=== PATIENT | male | born 1940 | race Hispanic/Latino ===

== ENCOUNTER 2019-02-20 01:07 | Inpatient (IN) | payer MEDICARE ==
[2019-02-20] VITALS (7 sets, daily range): BP systolic 99–131; BP diastolic 56–96
[~2019-02-20] VITALS: Ht 170.2 cm; Wt 110.4 kg
[2019-02-20 01:30] LABS: BASOPHILS % (AUTO) 0.5 % (0.0-5.0); EOSINOPHILS % (AUTO) 1.3 % (0.0-8.0); HEMATOCRIT 30.9 % (42-54); LYMPHOCYTES % (AUTO) 8.6 % (21.0-51.0); MEAN CORPUSCULAR HEMOGLOBIN 31.3 pg (27.0-33.0); MEAN CORPUSCULAR HGB CONC 33.6 g/dL (32.0-36.0); MEAN CORPUSCULAR VOLUME 93.4 fL (79-99); NEUTROPHILS % (AUTO) 83.6 % (40.0-77.0); PLATELET COUNT (AUTO) 268 K/uL (130-400); RED BLOOD CELL COUNT(AUTO) 3.31 MIL/uL (4.50-6.20); WHITE BLOOD COUNT (AUTO) 14.3 K/uL (4.8-10.8)
[2019-02-20] MEDS ORDERED: ACETAMINOPHEN EXTRA STRENGTH 500 MG TABLET ONE (01:33)
[2019-02-20 01:47] LABS: INR 1.04 (0.85-1.15); PARTIAL THROMBOPLASTIN TIME 37.8 SEC (26.3-35.5); PROTHROMBIN TIME 10.9 SEC (9.6-11.6)
[2019-02-20 01:48] LABS: ALBUMIN 2.7 g/dL (3.5-5.0); BILIRUBIN,TOTAL 0.3 mg/dL (0.2-1.0); CREATININE 2.5 mg/dL (0.5-1.5); TOTAL PROTEIN, SERUM 7.2 g/dL (6.0-8.3)
[2019-02-20 01:59] LABS: POTASSIUM 7.1 mmol/L (3.5-5.1)
[2019-02-20 02:01] LABS: B-TYPE NATRIURETIC PEPTIDE 75 pg/mL (0-100)
[2019-02-20 02:36] LABS: APPEARANCE,URINE Clear (CLEAR); BILIRUBIN,URINE Negative (NEGATIVE); COLOR,URINE Yellow (YELLOW); GLUCOSE, URINE (UA) 250 mg/dL (NEGATIVE); KETONES,URINE Negative (NEGATIVE); LEUKOCYTE ESTERASE ,URINE Moderate (NEGATIVE); NITRATE,URINE Positive (NEGATIVE); OCCULT BLOOD,URINE Moderate (NEGATIVE); PROTEIN,URINE Trace mg/dL (NEGATIVE)
[2019-02-20 02:43] LABS: CREATININE 2.2 mg/dL (0.5-1.5)
[2019-02-20 02:54] LABS: POTASSIUM 6.8 mmol/L (3.5-5.1)
[2019-02-20 03:10] LABS: BACTERIA,URINE Many /HPF (None Seen); MUCUS,URINE Rare LPF (None Seen); SQUAMOUS EPITHELIAL CELL,UR Few /HPF (0-2)
[2019-02-20] MEDS ORDERED: CALCIUM GLUCONATE 1 GM/10 ML VIAL IV ONE (03:24)
[2019-02-20] MEDS ORDERED: INSULIN HUMULIN R 100 UNIT/ML 3ML ONE (03:24)
[2019-02-20] MEDS ORDERED: AZITHROMYCIN 500MG+NS 250ML 250 ML IV ONE (03:24)
[2019-02-20] MEDS ORDERED: LEVOFLOXACIN 500 MG/D5W 100 ML 100 ML IV SCH (03:45)
[2019-02-20] MEDS ORDERED: ACETAMINOPHEN 325 MG TAB PO PRN ×2 (03:45)
[2019-02-20] MEDS ORDERED: DEXTROSE 50%-WATER 50 ML DISP.SYRIN IV PRN (03:45)
[2019-02-20] MEDS ORDERED: ONDANSETRON HCL 4 MG/2 ML VIAL IV PRN (03:45)
[2019-02-20] MEDS ORDERED: GUAIFENESIN-DM 200/20 MG 10 ML PO PRN (03:45)
[2019-02-20] MEDS ORDERED: GLUCAGON 1MG KIT 1 MG ML IM PRN (03:45)
[2019-02-20 04:21] LABS: HEMOGLOBIN A1C 9.3 % (4.0-6.0)
[2019-02-20 04:34] LABS: % IRON SATURATION 10.5 % (30-44)
[2019-02-20] MEDS ORDERED: LEVOFLOXACIN 500 MG/D5W 100 ML 100 ML ONE (04:45)
[2019-02-20] MEDS ORDERED: ZOSYN 3.375GM+NS 50ML 50 ML IV ONE (05:14)
[2019-02-20] MEDS ORDERED: PHARMACY COMMUNICATION MISC SCH (05:30)
[2019-02-20] MEDS: SODIUM CHLORIDE 0.9% 1000ML 1,000 ML IV SCH ×2 (05:41→16:50)
[2019-02-20] MEDS: ZOSYN 3.375GM+NS 50ML 50 ML IV SCH ×3 (05:42→22:16)
[2019-02-20] MEDS ORDERED: LEVO50TA11 PO (05:47)
[2019-02-20] MEDS ORDERED: INSU100I26 SQ (05:47)
[2019-02-20] MEDS ORDERED: TAMS-1 PO (05:47)
[2019-02-20] MEDS ORDERED: LISI40TA4 PO (05:47)
[2019-02-20] MEDS ORDERED: SIMV40TA5 PO (05:47)
[2019-02-20] MEDS ORDERED: PRAS10TA9 PO (05:47)
[2019-02-20] MEDS ORDERED: MELO-106 PO (05:47)
[2019-02-20] MEDS ORDERED: AEC81 PO (05:47)
--- NOTE | 2019-02-20 06:00 | NUR ---
NEW ADMIT ADMITTED POST 2 FALLS IN 24 HRS FROM HOME, SEPTICEMIA, UTI AND DEHYDRATION. ALERT AND ORIENTED X 3, NO COMPLAINTS OF PAIN, REINFORCED SAFETY INSTRUCTIONS, AT THE BEDSIDE. NS AT 100 C/HR, DUE ANTIBIOTICS STARTED, PLACED ON TELEMETRY MONITORING, RUNNING NSR IN THE 70'S. HOME MEDS ENTERED, PENDING RECONCILIATION.
[2019-02-20] MEDS: IPRATROPIUM/ALBUTEROL SULFATE 3 ML SOLUTION IH SCH ×5 (07:02→21:15)
[2019-02-20] MEDS: INSULIN HUMULIN R 100 UNIT/ML 3ML SQ SCH ×4 (07:30→21:00)
[2019-02-20] MEDS ORDERED: INSULIN GLARGINE 100 UNITS/ML 10 ML VIAL SQ SCH (09:00)
[2019-02-20 09:55] LABS: POTASSIUM 6.2 mmol/L (3.5-5.1); TROPONIN I 0.67 ng/mL (0.00-0.06)
[2019-02-20] MEDS ORDERED: SODIUM POLYSTYRENE SULFONATE 15 GM/60 ML ML ONE (10:07)
[2019-02-20] MEDS: FAMOTIDINE 20MG TAB 20 MG TAB PO SCH (10:11)
[2019-02-20] MEDS: LEVOTHYROXINE 50 MCG TABLET PO SCH (10:11)
[2019-02-20] MEDS: ASPIRIN 81 MG EC TAB PO SCH (10:12)
[2019-02-20] MEDS: SODIUM POLYSTYRENE SULFONATE 15 GM/60 ML ML PO SCH (10:15)
[2019-02-20] MEDS: ENOXAPARIN SODIUM 30 MG/0.3 ML SQ SCH (10:16)
[2019-02-20] MEDS ORDERED: COMPOUND IV MISC 1 EACH IVSOLN MISC PRN (11:30)
[2019-02-20] MEDS ORDERED: SODIUM BICARBONATE 650 MG TAB PO SCH (11:30)
[2019-02-20] MEDS: PRASUGREL HCL 10 MG TABLET PO SCH (12:01)
[2019-02-20 13:43] LABS: TROPONIN I 1.12 ng/mL (0.00-0.06)
[2019-02-20 15:12] LABS: CREATININE 1.9 mg/dL (0.5-1.5); MAGNESIUM 1.5 mg/dL (1.80-2.40)
--- NOTE | 2019-02-20 15:23 | NUR ---
D/C PLAN cm spoke to pt and daughter named Mitul Kim regarding d/c planning. pt lives with spouse. Pt has a provider to assist with ADL's. Pt has a rollator walker. Plan to home. CM to f/u. Addendum: 02/20/19 at 1526 by BEN COLE CM Amended: Links added. Addendum: 02/20/19 at 1530 by BEN COLE CM Daughter asked CM about home physical therapy. CM explained that pt can obtain services by current home health agency. Explained to ask home health nurse to f/u with PCP in regards to orders. Verbalized understanding. No other questions or concerns verbalized.
[2019-02-20 15:26] LABS: POTASSIUM 6.2 mmol/L (3.5-5.1)
[2019-02-20] MEDS ORDERED: DEXTROSE 50%-WATER 50 ML DISP.SYRIN IV SCH (15:45)
[2019-02-20] MEDS ORDERED: INSULIN HUMULIN R 100 UNIT/ML 3ML IV SCH (15:45)
[2019-02-20] MEDS ORDERED: CALCIUM GLUCONATE 1 GM/10 ML VIAL IV SCH (15:45)
[2019-02-20] MEDS ORDERED: ALBUTEROL SULFATE 0.083% 2.5 MG/3 ML INH IH ONE (15:45)
[2019-02-20] MEDS ORDERED: CALCIUM GLUCONATE 1 GM in SODIUM CHLORIDE 0.9% 50 ML IV SCH (16:00)
[2019-02-20 20:48] LABS: TROPONIN I 1.12 ng/mL (0.00-0.06)
[2019-02-20] MEDS: TAMSULOSIN HCL 0.4 MG CAP.ER.24H PO SCH (22:15)
[2019-02-20] MEDS: SODIUM BICARBONATE 650 MG TAB PO SCH (22:15)
[2019-02-20] MEDS: SIMVASTATIN 20 MG TABLET PO SCH (22:15)
[2019-02-21 01:40] LABS: TROPONIN I 0.89 ng/mL (0.00-0.06)
[2019-02-21] MEDS: IPRATROPIUM/ALBUTEROL SULFATE 3 ML SOLUTION IH SCH ×6 (02:33→21:16)
[2019-02-21 03:48] VITALS: BP 110/42
[2019-02-21] MEDS: ZOSYN 3.375GM+NS 50ML 50 ML IV SCH ×3 (04:48→21:30)
[2019-02-21] MEDS: SODIUM CHLORIDE 0.9% 1000ML 1,000 ML IV SCH ×2 (04:48→12:48)
[2019-02-21] MEDS: INSULIN HUMULIN R 100 UNIT/ML 3ML SQ SCH ×4 (05:12→21:00)
[2019-02-21 06:40] LABS: BASOPHILS % (AUTO) 0.5 % (0.0-5.0); EOSINOPHILS % (AUTO) 2.1 % (0.0-8.0); LYMPHOCYTES % (AUTO) 8.6 % (21.0-51.0); MEAN CORPUSCULAR HEMOGLOBIN 31.3 pg (27.0-33.0); MEAN CORPUSCULAR HGB CONC 33.3 g/dL (32.0-36.0); MONOCYTES % (AUTO) 7.6 % (3.0-13.0); NEUTROPHILS % (AUTO) 81.2 % (40.0-77.0); PLATELET COUNT (AUTO) 228 K/uL (130-400); RED BLOOD CELL COUNT(AUTO) 2.98 MIL/uL (4.50-6.20); RED CELL DISTRIBUTION WIDTH 13.2 % (11.0-15.5)
[2019-02-21 06:56] LABS: ALBUMIN 2.3 g/dL (3.5-5.0); BILIRUBIN,TOTAL 0.4 mg/dL (0.2-1.0); CREATININE 1.7 mg/dL (0.5-1.5); MAGNESIUM 1.6 mg/dL (1.80-2.40); POTASSIUM 5.6 mmol/L (3.5-5.1); TOTAL PROTEIN, SERUM 6.4 g/dL (6.0-8.3)
[2019-02-21 07:00] VITALS: BP 133/75
[2019-02-21 08:00] LABS: TROPONIN I 1.11 ng/mL (0.00-0.06)
[2019-02-21] MEDS ORDERED: LEVOFLOXACIN 250 MG/D5W 50ML 50 ML IVPB SCH (09:00)
[2019-02-21] MEDS: SODIUM POLYSTYRENE SULFONATE 15 GM/60 ML ML RC SCH (09:00)
[2019-02-21] MEDS: ASPIRIN 81 MG EC TAB PO SCH (09:02)
[2019-02-21] MEDS: SODIUM BICARBONATE 650 MG TAB PO SCH ×2 (09:02→21:30)
[2019-02-21] MEDS: LEVOTHYROXINE 50 MCG TABLET PO SCH (09:02)
[2019-02-21] MEDS: FAMOTIDINE 20MG TAB 20 MG TAB PO SCH (09:02)
[2019-02-21] MEDS: ENOXAPARIN SODIUM 30 MG/0.3 ML SQ SCH (09:05)
[2019-02-21 11:00] VITALS: BP 152/92
[2019-02-21] MEDS: SODIUM POLYSTYRENE SULFONATE 15 GM/60 ML ML PO SCH (12:47)
[2019-02-21] MEDS: PRASUGREL HCL 10 MG TABLET PO SCH (12:48)
[2019-02-21] MEDS: IRON SUCROSE COMPLEX 100 MG in SODIUM CHLORIDE 0.9% 50 ML IV SCH (13:00)
[2019-02-21 16:00] VITALS: BP 137/72
[2019-02-21 20:00] VITALS: BP 151/74
[2019-02-21] MEDS: TAMSULOSIN HCL 0.4 MG CAP.ER.24H PO SCH (21:30)
[2019-02-21] MEDS: SIMVASTATIN 20 MG TABLET PO SCH (21:30)
[2019-02-22] VITALS: BP 136/76
[2019-02-22] MEDS: IPRATROPIUM/ALBUTEROL SULFATE 3 ML SOLUTION IH SCH ×6 (01:07→21:58)
[2019-02-22 04:00] VITALS: BP 138/81
[2019-02-22] MEDS: SODIUM CHLORIDE 0.9% 1000ML 1,000 ML IV SCH ×2 (04:08→05:43)
[2019-02-22] MEDS: ZOSYN 3.375GM+NS 50ML 50 ML IV SCH ×3 (04:45→21:25)
[2019-02-22 05:16] LABS: HEMATOCRIT 26.1 % (42-54); MEAN CORPUSCULAR HEMOGLOBIN 31.7 pg (27.0-33.0); MEAN CORPUSCULAR HGB CONC 33.4 g/dL (32.0-36.0); MEAN CORPUSCULAR VOLUME 94.8 fL (79-99); PLATELET COUNT (AUTO) 232 K/uL (130-400); RED BLOOD CELL COUNT(AUTO) 2.75 MIL/uL (4.50-6.20)
[2019-02-22 05:30] LABS: CREATININE 1.4 mg/dL (0.5-1.5); POTASSIUM 4.8 mmol/L (3.5-5.1)
[2019-02-22] MEDS: INSULIN HUMULIN R 100 UNIT/ML 3ML SQ SCH ×4 (06:19→21:00)
[2019-02-22 07:00] VITALS: BP 145/75
[2019-02-22] MEDS: SODIUM POLYSTYRENE SULFONATE 15 GM/60 ML ML PO SCH (08:20)
[2019-02-22] MEDS: SODIUM POLYSTYRENE SULFONATE 15 GM/60 ML ML RC SCH (08:58)
[2019-02-22] MEDS: SODIUM BICARBONATE 650 MG TAB PO SCH ×2 (10:52→21:25)
[2019-02-22] MEDS: PRASUGREL HCL 10 MG TABLET PO SCH (10:52)
[2019-02-22] MEDS: ASPIRIN 81 MG EC TAB PO SCH (10:52)
[2019-02-22] MEDS: LEVOTHYROXINE 50 MCG TABLET PO SCH (10:52)
[2019-02-22] MEDS: FAMOTIDINE 20MG TAB 20 MG TAB PO SCH (10:52)
[2019-02-22] MEDS: ENOXAPARIN SODIUM 30 MG/0.3 ML SQ SCH (10:53)
[2019-02-22 11:00] VITALS: BP 140/65
[2019-02-22] MEDS: INSULIN GLARGINE 100 UNITS/ML 10 ML VIAL SQ SCH (11:20)
[2019-02-22] MEDS: IRON SUCROSE COMPLEX 100 MG in SODIUM CHLORIDE 0.9% 50 ML IV SCH (11:20)
--- NOTE | 2019-02-22 12:49 | NUR ---
CM Note: [facility] pending acceptance CM met with pt and fam, discussed MD recs for SNF, pt and fam agreeable, spouse signed SIMON for [facility]. Faxed order, clinicals, and pasrr. Spoke to Osvaldo, will come [place]ala pt. Pt pending acceptance. Primary nurse aware. CM to cont to follow up.
[2019-02-22] MEDS: MAGNESIUM 2GM PREMIX 50ML 50 ML IV PRN (14:11)
[2019-02-22 19:00] VITALS: BP 154/73
[2019-02-22] MEDS: TAMSULOSIN HCL 0.4 MG CAP.ER.24H PO SCH (21:25)
[2019-02-22] MEDS: SIMVASTATIN 20 MG TABLET PO SCH (21:25)
[2019-02-23] VITALS: BP 144/67
[2019-02-23] MEDS: IPRATROPIUM/ALBUTEROL SULFATE 3 ML SOLUTION IH SCH ×5 (01:23→18:20)
--- NOTE | 2019-02-23 03:50 | NUR ---
SLEEP Pt slept fairly,voiced no complaints of pain or discomfort.
[2019-02-23 04:00] VITALS: BP 134/71
[2019-02-23 05:08] LABS: HEMATOCRIT 26.5 % (42-54); MEAN CORPUSCULAR HEMOGLOBIN 30.8 pg (27.0-33.0); MEAN CORPUSCULAR HGB CONC 32.7 g/dL (32.0-36.0); MEAN CORPUSCULAR VOLUME 94.2 fL (79-99); PLATELET COUNT (AUTO) 249 K/uL (130-400); RED BLOOD CELL COUNT(AUTO) 2.81 MIL/uL (4.50-6.20); RED CELL DISTRIBUTION WIDTH 13.1 % (11.0-15.5)
[2019-02-23] MEDS: ZOSYN 3.375GM+NS 50ML 50 ML IV SCH ×2 (05:09→12:04)
[2019-02-23 05:22] LABS: CREATININE 1.3 mg/dL (0.5-1.5); MAGNESIUM 1.6 mg/dL (1.80-2.40); POTASSIUM 4.4 mmol/L (3.5-5.1)
[2019-02-23] MEDS: MAGNESIUM 2GM PREMIX 50ML 50 ML IV PRN (06:22)
[2019-02-23] MEDS: INSULIN HUMULIN R 100 UNIT/ML 3ML SQ SCH ×3 (06:23→16:30)
[2019-02-23 07:30] VITALS: BP 121/60
[2019-02-23] MEDS: SODIUM POLYSTYRENE SULFONATE 15 GM/60 ML ML PO SCH (08:35)
[2019-02-23] MEDS: SODIUM POLYSTYRENE SULFONATE 15 GM/60 ML ML RC SCH (08:35)
--- NOTE | 2019-02-23 09:22 | NUR ---
CM Note: [facility] acceptance Spoke to Osvaldo crisostomo/Natalie Knight, pt has acceptance. Pt may transfer via [facility] transport van once ready to dc. Primary nurse aware. CM to cont to follow up.
[2019-02-23] MEDS: IRON SUCROSE COMPLEX 100 MG in SODIUM CHLORIDE 0.9% 50 ML IV SCH (09:44)
[2019-02-23] MEDS: PRASUGREL HCL 10 MG TABLET PO SCH (09:45)
[2019-02-23] MEDS: LEVOTHYROXINE 50 MCG TABLET PO SCH (09:45)
[2019-02-23] MEDS: FAMOTIDINE 20MG TAB 20 MG TAB PO SCH (09:45)
[2019-02-23] MEDS: SODIUM BICARBONATE 650 MG TAB PO SCH (09:45)
[2019-02-23] MEDS: ASPIRIN 81 MG EC TAB PO SCH (09:45)
[2019-02-23] MEDS: ENOXAPARIN SODIUM 30 MG/0.3 ML SQ SCH (09:46)
[2019-02-23] MEDS: INSULIN GLARGINE 100 UNITS/ML 10 ML VIAL SQ SCH (09:55)
[2019-02-23 11:00] VITALS: BP 126/66
[2019-02-23 16:00] VITALS: BP 129/69
== END 2019-02-23 18:50 | DRG 871 ==
LOC: EDH 01:07 → EDHIP 03:49 → 3AH 04:48
PROVIDERS: ADMIT Internal Medicine; ATTEND Internal Medicine
DX: A41.50 Gram-negative sepsis, unspecified (principal); J18.9 Pneumonia, unspecified organism; G93.41 Metabolic encephalopathy; N39.0 Urinary tract infection, site not specified; N17.9 Acute kidney failure, unspecified; E87.1 Hypo-osmolality and hyponatremia; N18.3 Chronic kidney disease, stage 3 (moderate); E87.5 Hyperkalemia; D64.9 Anemia, unspecified; E03.9 Hypothyroidism, unspecified; E11.22 Type 2 diabetes mellitus with diabetic chronic kidney disease; E11.65 Type 2 diabetes mellitus with hyperglycemia; E66.01 Morbid (severe) obesity due to excess calories; E78.00 Pure hypercholesterolemia, unspecified; E78.5 Hyperlipidemia, unspecified; E83.42 Hypomagnesemia; E86.0 Dehydration; E87.6 Hypokalemia; I12.9 Hypertensive chronic kidney disease with stage 1 through stage 4 chronic kidney disease, or unspecified chronic kidney disease; I25.10 Atherosclerotic heart disease of native coronary artery without angina pectoris; N40.0 Benign prostatic hyperplasia without lower urinary tract symptoms; M19.90 Unspecified osteoarthritis, unspecified site; W01.0XXA Fall on same level from slipping, tripping and stumbling without subsequent striking against object, initial encounter; Y93.01 Activity, walking, marching and hiking; I25.5 Ischemic cardiomyopathy; B96.20 Unspecified Escherichia coli [E. coli] as the cause of diseases classified elsewhere; N41.9 Inflammatory disease of prostate, unspecified; Z74.01 Bed confinement status; Z79.4 Long term (current) use of insulin; Z83.3 Family history of diabetes mellitus; Y92.009 Unspecified place in unspecified non-institutional (private) residence as the place of occurrence of the external cause; Y99.8 Other external cause status; Z82.49 Family history of ischemic heart disease and other diseases of the circulatory system; Z68.38 Body mass index [BMI] 38.0-38.9, adult
CPT/HCPCS: 36415; 70450; 71045; 73562; 76770; 80048; 80053; 80061; 81001; 82009; 82550; 82728; 82948; 83036; 83540; 83550; 83605; 83690; 83735; 83874; 83880; 84132; 84145; 84484; 85025; 85027; 85610; 85730; 86140; 87040; 87077; 87088; 87186; 87486; 87581; 87633; 87798; 87804; 93005; 94640; 94664; 94760; 97039; A4606; G0378; J0456; J0610; J1650; J1756; J1815; J1956; J2543; J3475; J7030; J7070

== ENCOUNTER 2019-05-11 21:57 | Inpatient (IN) | payer MEDICARE | END 2019-05-14 17:47 | disposition home or self-care (01) | LOC: EDH 21:57 → EDHIP 05-12 00:10 → 2DH 05-12 04:26 | DX: N39.0 Urinary tract infection, site not specified (principal); I50.31 Acute diastolic (congestive) heart failure; N17.9 Acute kidney failure, unspecified; E87.5 Hyperkalemia; N28.9 Disorder of kidney and ureter, unspecified; Z79.4 Long term (current) use of insulin; E11.65 Type 2 diabetes mellitus with hyperglycemia; I11.0 Hypertensive heart disease with heart failure; R09.89 Other specified symptoms and signs involving the circulatory and respiratory systems ==

== ENCOUNTER 2020-06-22 20:18 | Inpatient (IN) | payer MEDICARE ==
[~2020-06-22] VITALS: Ht 167.6 cm; Wt 111.6 kg
[~2020-06-22 20:18] MED LIST: AEC81 PO; CHOL500051 PO; DOCU-282 PO; FAMO20TA8 PO; INSU100I26 SQ; LEVO500T2 PO; LEVO50TA11 PO; LISI40TA4 PO; MELO-106 PO; PRAS10TA9 PO; SIMV-46 PO; TAMS-1 PO
[2020-06-22] MEDS ORDERED: PROPOFOL 1000 MG/100 ML 100 ML IV ONE (20:25)
[2020-06-22 20:38] LABS: BASOPHILS % (AUTO) 0.3 % (0.0-5.0); HEMATOCRIT 24.1 % (42-54); MEAN CORPUSCULAR HEMOGLOBIN 28.7 pg (27.0-33.0); MEAN CORPUSCULAR HGB CONC 29.9 g/dL (32.0-36.0); MONOCYTES % (AUTO) 3.4 % (3.0-13.0); NEUTROPHILS % (AUTO) 74.5 % (40.0-77.0); NUCLEATED RED BLOOD CELLS 0.1 % (0.0-0.19); PLATELET COUNT (AUTO) 334 K/uL (130-400); RED BLOOD CELL COUNT(AUTO) 2.51 MIL/uL (4.50-6.20); RED CELL DISTRIBUTION WIDTH 14.7 % (11.0-15.5); WHITE BLOOD COUNT (AUTO) 22.2 K/uL (4.8-10.8)
[2020-06-22 20:40] LABS: APPEARANCE,URINE CLOUDY (CLEAR); BILIRUBIN,URINE NEGATIVE (NEGATIVE); COLOR,URINE YELLOW (YELLOW); GLUCOSE, URINE (UA) NEGATIVE (NEGATIVE); KETONES,URINE NEGATIVE (NEGATIVE); LEUKOCYTE ESTERASE ,URINE LARGE (NEGATIVE); NITRATE,URINE NEGATIVE (NEGATIVE); OCCULT BLOOD,URINE LARGE (NEGATIVE); PH,URINE 5.5 (5.0-8.0); PROTEIN,URINE TRACE mg/dL (NEGATIVE); UROBILINOGEN,URINE 0.2 mg/dL (0.2-1.0)
[2020-06-22] MEDS ORDERED: VANCOMYCIN 1GM+NS 250ML 250 ML IV ONE (20:44)
[2020-06-22] MEDS ORDERED: ASPIRIN 300 MG SUPPOSITORY PR ONE (20:44)
[2020-06-22] MEDS ORDERED: SODIUM CHLORIDE 0.9% 100 ML IV ONE (20:45)
[2020-06-22] MEDS ORDERED: OCTREOTIDE ACETATE 100 MCG/ML AMP IVP SCH (20:45)
[2020-06-22 20:48] LABS: WBC,URINE >100 /HPF (0-1)
[2020-06-22 20:48] LABS: ABG BASE EXCESS -13.2 mmol/L (-2.0-3.0); ABG HCO3 13.9 mmol/L (21.0-28.0); ABG OXYGEN SATURATION 99.6 % (95.0-99.0); ABG PCO2 37 mmHg (35-48)
[2020-06-22] MEDS ORDERED: NITROGLYCERIN 2 MG/VIAL VIAL IV ONE (20:48)
[2020-06-22] MEDS ORDERED: LIDOCAINE HCL 2% 20ML ONE (20:48)
[2020-06-22] MEDS ORDERED: FENTANYL 2500MCG+NS 250ML 0 ML IV ONE (20:48)
[2020-06-22] MEDS ORDERED: NOREPINEPHRINE 4MG/NS 250ML 250 ML IV ONE (20:48)
[2020-06-22] MEDS ORDERED: IOHEXOL 350 MG/ML 100ML INFUS..BTL IV ONE (20:48)
[2020-06-22] MEDS ORDERED: HEPARIN SODIUM 1000UNIT/ML 10ML VIAL ONE (20:48)
[2020-06-22] MEDS ORDERED: BIVALIRUDIN 250 MG/VIAL IV ONE (20:48)
[2020-06-22 20:49] LABS: BACTERIA,URINE Few /HPF (None Seen)
[2020-06-22 20:50] LABS: SQUAMOUS EPITHELIAL CELL,UR None Seen /HPF (0-2)
[2020-06-22 20:51] LABS: INR 1.25 (0.85-1.15); PARTIAL THROMBOPLASTIN TIME 53.2 SEC (26.3-35.5); PROTHROMBIN TIME 13.4 SEC (9.6-11.6)
[2020-06-22 20:59] LABS: ALBUMIN 1.9 g/dL (3.5-5.0); BILIRUBIN,TOTAL 0.1 mg/dL (0.2-1.0); CREATININE 3.5 mg/dL (0.5-1.5); TOTAL PROTEIN, SERUM 6.4 g/dL (6.0-8.3); TROPONIN I 0.06 ng/mL (0.00-0.06)
[2020-06-22] MEDS ORDERED: OCTREOTIDE 1,250 MCG /NS 250ML (DRIP) IV SCH ×2 (21:00)
[2020-06-22] MEDS ORDERED: PANTOPRAZOLE SODIUM 80 MG in NS 100ML IVP SCH (21:00)
[2020-06-22] MEDS ORDERED: CALCIUM GLUCONATE 1 GM/10 ML VIAL IV ONE (21:03)
--- NOTE | 2020-06-22 21:03 | NUR ---
patient on LTV vent last four numbers [phone]
[2020-06-22 21:04] LABS: PLATELET MORPHOLOGY PLT CLUMPS PRESENT
[2020-06-22] MEDS ORDERED: INSULIN HUMULIN R 100 UNIT/ML 3ML ONE (21:04)
[2020-06-22] MEDS ORDERED: DEXTROSE 50%-WATER 50 ML DISP.SYRIN IV ONE (21:04)
[2020-06-22] MEDS ORDERED: SODIUM CHLORIDE 0.9% 500ML 500 ML IV ONE (21:14)
[2020-06-22] MEDS ORDERED: ZOSYN 3.375GM+NS 50ML 50 ML IV ONE (21:27)
[2020-06-22] MEDS ORDERED: ACETAMINOPHEN 325 MG TAB PO PRN (21:45)
[2020-06-22] MEDS ORDERED: SODIUM CHLORIDE 0.9% 1000ML 1,000 ML IV SCH (21:45)
[2020-06-22] MEDS ORDERED: NOREPINEPHRINE 4MG/NS 250ML 250 ML IV PRN (21:45)
[2020-06-23 00:33] LABS: OCCULT BLOOD,GASTRIC FLUID POSITIVE (NEGATIVE)
[2020-06-23] MEDS ORDERED: PROPOFOL 1000 MG/100 ML 100 ML IV ONE ×3 (01:19→12:29)
[2020-06-23 04:29] LABS: BASOPHILS % (AUTO) 0.3 % (0.0-5.0); HEMATOCRIT 32.3 % (42-54); LYMPHOCYTES % (AUTO) 3.1 % (21.0-51.0); MEAN CORPUSCULAR HEMOGLOBIN 29.5 pg (27.0-33.0); MEAN CORPUSCULAR HGB CONC 31.9 g/dL (32.0-36.0); MEAN CORPUSCULAR VOLUME 92.6 fL (79-99); MONOCYTES % (AUTO) 3.8 % (3.0-13.0); NEUTROPHILS % (AUTO) 90.1 % (40.0-77.0); PLATELET COUNT (AUTO) 355 K/uL (130-400); RED BLOOD CELL COUNT(AUTO) 3.49 MIL/uL (4.50-6.20); RED CELL DISTRIBUTION WIDTH 14.7 % (11.0-15.5); WHITE BLOOD COUNT (AUTO) 29.8 K/uL (4.8-10.8)
[2020-06-23 05:01] LABS: ABG BASE EXCESS -10.7 mmol/L (-2.0-3.0); ABG HCO3 14.8 mmol/L (21.0-28.0); ABG OXYGEN SATURATION 97.8 % (95.0-99.0); ABG PCO2 32 mmHg (35-48)
[2020-06-23 05:18] LABS: BILIRUBIN,TOTAL 0.8 mg/dL (0.2-1.0); CREATININE 2.9 mg/dL (0.5-1.5); CRP QUANTITATIVE 68.1 mg/L (0.00-9.0); MAGNESIUM 2.1 mg/dL (1.80-2.40); TOTAL PROTEIN, SERUM 6.7 g/dL (6.0-8.3)
[2020-06-23] MEDS ORDERED: ZOSYN 3.375GM+NS 50ML 50 ML IV ONE (05:23)
[2020-06-23 05:26] LABS: POTASSIUM 6.5 mmol/L (3.5-5.1)
[2020-06-23 05:38] LABS: ERYTHROCYTE SEDIMENTATION RATE 48 MM/HR (0-20)
[2020-06-23] MEDS ORDERED: SODIUM CHLORIDE 0.9% 100 ML IV ONE (05:48)
[2020-06-23] MEDS ORDERED: AMIODARONE HCL 150 MG in DEXTROSE 5%-WATER 100 ML IV SCH (07:30)
[2020-06-23] MEDS ORDERED: AMIODARONE HCL 360 MG in DEXTROSE 5%-WATER 200 ML IV SCH (07:30)
[2020-06-23] MEDS ORDERED: VANCOMYCIN PROTOCOL PER PHARMACY IV SCH (07:30)
[2020-06-23] MEDS ORDERED: SODIUM POLYSTYRENE SULFONATE 15 GM/60 ML ML PO SCH (07:30)
[2020-06-23] MEDS ORDERED: AMIODARONE HCL 450 MG in DEXTROSE 5%-WATER 250 ML IV SCH (07:30)
[2020-06-23] MEDS ORDERED: RENAL DOSE IV SCH (07:30)
[2020-06-23] MEDS ORDERED: SODIUM POLYSTYRENE SULFONATE 15 GM/60 ML ML RC SCH (07:45)
[2020-06-23] MEDS ORDERED: COMPOUND IV REFRIGERATED 1 EACH IVSOLN MISC PRN (07:45)
[2020-06-23] MEDS ORDERED: DEXTROSE 50%-WATER 25 GM/50 ML VIAL IV SCH (07:45)
[2020-06-23] MEDS ORDERED: DEXTROSE 50%-WATER 50 ML DISP.SYRIN IV SCH (07:45)
[2020-06-23] MEDS ORDERED: CALCIUM GLUCONATE 1 GM in SODIUM CHLORIDE 0.9% 100 ML IV SCH (07:45)
[2020-06-23] MEDS ORDERED: CALCIUM GLUCONATE 1 GM/10 ML VIAL IV SCH (07:45)
[2020-06-23] MEDS ORDERED: SODIUM POLYSTYRENE SULFONATE 15 GM/60 ML ML ONE ×2 (07:54→14:04)
[2020-06-23] MEDS ORDERED: CALCIUM GLUCONATE 1 GM/10 ML VIAL IV ONE ×2 (08:24→14:04)
[2020-06-23] MEDS ORDERED: DEXTROSE 50%-WATER 50 ML DISP.SYRIN IV ONE ×2 (08:25→14:04)
[2020-06-23] MEDS: VANCOMYCIN 1.25 GM in SODIUM CHLORIDE 0.9% 250 ML IV SCH (09:00)
[2020-06-23] MEDS: FAMOTIDINE/PF 20 MG/2 ML VIAL IV SCH (09:00)
[2020-06-23] MEDS ORDERED: LORAZEPAM 2 MG/ML 1 ML VIAL ONE ×2 (09:06→12:24)
[2020-06-23] MEDS ORDERED: NOREPINEPHRINE 4MG/NS 250ML 250 ML IV ONE (09:25)
[2020-06-23 10:53] LABS: ABG BASE EXCESS -8.1 mmol/L (-2.0-3.0); ABG HCO3 17.7 mmol/L (21.0-28.0); ABG PCO2 37 mmHg (35-48)
[2020-06-23] MEDS: INSULIN HUMULIN R 100 UNIT/ML 3ML SQ SCH ×2 (11:30→17:00)
[2020-06-23 13:08] LABS: CREATININE 2.7 mg/dL (0.5-1.5); POTASSIUM 6.3 mmol/L (3.5-5.1)
[2020-06-23] MEDS ORDERED: INSULIN HUMULIN R 100 UNIT/ML 3ML ONE (14:05)
--- NOTE | 2020-06-23 16:03 | NUR ---
cm note pt currently on ventilator, call made to pt's daughter dalia bowie, states pt resides at home with spouse, pt has deteriorated in the last few months since March 2020 after hip surgery, went to [facility], but did poorly, and was at home with spouse prior to admit, has provider 4-5hrs daily. has w/c, sc, bsc, hospital bed. daughter also assists. daughter prefers pt to return back to home setting at time of dc if possible. Addendum: 06/23/20 at 1626 by VINNY BERMAN CM Amended: Links added.
[2020-06-23 18:21] LABS: ABG HCO3 18.9 mmol/L (21.0-28.0); ABG OXYGEN SATURATION 96.6 % (95.0-99.0); ABG PCO2 39 mmHg (35-48)
[2020-06-23 18:25] LABS: MEAN CORPUSCULAR HEMOGLOBIN 29.3 pg (27.0-33.0); MEAN CORPUSCULAR VOLUME 91.5 fL (79-99); PLATELET COUNT (AUTO) 323 K/uL (130-400); RED BLOOD CELL COUNT(AUTO) 3.28 MIL/uL (4.50-6.20); RED CELL DISTRIBUTION WIDTH 15.2 % (11.0-15.5); WHITE BLOOD COUNT (AUTO) 23.7 K/uL (4.8-10.8)
[2020-06-23 18:34] LABS: CREATININE 2.6 mg/dL (0.5-1.5); MAGNESIUM 1.7 mg/dL (1.80-2.40); POTASSIUM 5.9 mmol/L (3.5-5.1)
[2020-06-23 19:34] LABS: LYMPHOCYTES % (MANUAL) 2 % (22-44); MAN.DIFF COMMENT-IMPRESSION MANUAL DIFFERENTIAL; MONOCYTES % (MANUAL) 2 % (2-9); SEGMENTED NEUTROPHILS % 96 % (40-70)
[2020-06-23 19:35] LABS: PLATELET MORPHOLOGY COMMENT ADEQUATE
[2020-06-23] MEDS: PROPOFOL 1000 MG/100 ML 100 ML IV PRN ×2 (20:19→23:15)
[2020-06-23] MEDS: ZOSYN 3.375GM+NS 50ML 50 ML IV SCH (20:57)
[2020-06-23] MEDS: SODIUM BICARB 8.4% 50ML SYRING 150 MEQ in DEXTROSE 5%-WATER 1,000 ML IVP SCH ×2 (20:57→23:08)
[2020-06-23] MEDS: HEPARIN SODIUM 5000UNIT/ML 1ML VIAL SQ SCH (21:00)
[2020-06-24] VITALS (62 sets, daily range): BP systolic 85–257; BP diastolic 34–236
[2020-06-24] MEDS: LORAZEPAM 2 MG/ML 1 ML VIAL IVP PRN ×2 (00:37→01:37)
[2020-06-24 03:57] LABS: ABG BASE EXCESS -4.9 mmol/L (-2.0-3.0); ABG HCO3 20.1 mmol/L (21.0-28.0); ABG OXYGEN SATURATION 96.5 % (95.0-99.0); ABG PCO2 37 mmHg (35-48)
[2020-06-24 06:03] LABS: BASOPHILS % (AUTO) 0.2 % (0.0-5.0); HEMATOCRIT 31.4 % (42-54); LYMPHOCYTES % (AUTO) 2.6 % (21.0-51.0); MEAN CORPUSCULAR HEMOGLOBIN 28.9 pg (27.0-33.0); MEAN CORPUSCULAR HGB CONC 31.5 g/dL (32.0-36.0); MEAN CORPUSCULAR VOLUME 91.8 fL (79-99); MONOCYTES % (AUTO) 0.5 % (3.0-13.0); NEUTROPHILS % (AUTO) 95.1 % (40.0-77.0); PLATELET COUNT (AUTO) 332 K/uL (130-400); RED BLOOD CELL COUNT(AUTO) 3.42 MIL/uL (4.50-6.20); RED CELL DISTRIBUTION WIDTH 15.2 % (11.0-15.5); WHITE BLOOD COUNT (AUTO) 22.6 K/uL (4.8-10.8)
[2020-06-24 06:26] LABS: ALBUMIN 1.7 g/dL (3.5-5.0); BILIRUBIN,TOTAL 0.4 mg/dL (0.2-1.0); CREATININE 2.6 mg/dL (0.5-1.5); MAGNESIUM 1.7 mg/dL (1.80-2.40); TOTAL PROTEIN, SERUM 6.1 g/dL (6.0-8.3)
[2020-06-24 06:39] LABS: POTASSIUM 6.9 mmol/L (3.5-5.1)
[2020-06-24] MEDS: INSULIN HUMULIN R 100 UNIT/ML 3ML SQ SCH ×2 (07:30→11:30)
[2020-06-24] MEDS ORDERED: INSULIN LISPRO 100 UNIT/ML 3ML IVP SCH (07:45)
[2020-06-24] MEDS ORDERED: CALCIUM GLUCONATE 1 GM/10 ML VIAL IV SCH (07:45)
[2020-06-24] MEDS ORDERED: SODIUM POLYSTYRENE SULFONATE 15 GM/60 ML ML PO SCH (07:45)
[2020-06-24] MEDS ORDERED: DEXTROSE 50%-WATER 25 GM/50 ML VIAL IV SCH (07:45)
[2020-06-24] MEDS ORDERED: SODIUM BICARB 8.4% 50ML SYRINGE IVP SCH (07:45)
[2020-06-24] MEDS ORDERED: DEXTROSE 50%-WATER 50 ML DISP.SYRIN IV SCH (08:15)
[2020-06-24] MEDS ORDERED: SODIUM BICARB 50MEQ 50ML VIAL IV SCH (08:15)
[2020-06-24] MEDS: HEPARIN SODIUM 5000UNIT/ML 1ML VIAL SQ SCH ×2 (09:00→14:00)
[2020-06-24] MEDS: CALCIUM GLUCONATE 1 GM in SODIUM CHLORIDE 0.9% 100 ML IV SCH (09:02)
[2020-06-24] MEDS: ZOSYN 3.375GM+NS 50ML 50 ML IV SCH ×2 (09:17→21:36)
[2020-06-24] MEDS: SODIUM BICARB 8.4% 50ML SYRING 150 MEQ in DEXTROSE 5%-WATER 1,000 ML IVP SCH ×2 (10:45→21:37)
[2020-06-24] MEDS ORDERED: NOREPINEPHRINE BITARTRATE 16 MG in SODIUM CHLORIDE 0.9% 250 ML IV SCH (17:45)
[2020-06-25] VITALS (45 sets, daily range): BP systolic 88–172; BP diastolic 34–74
[2020-06-25 03:47] LABS: ABG BASE EXCESS 0.4 mmol/L (-2.0-3.0); ABG HCO3 25.7 mmol/L (21.0-28.0); ABG OXYGEN SATURATION 93.1 % (95.0-99.0); ABG PCO2 44 mmHg (35-48)
[2020-06-25 04:56] LABS: BASOPHILS % (AUTO) 0.2 % (0.0-5.0); HEMATOCRIT 32.2 % (42-54); LYMPHOCYTES % (AUTO) 6.8 % (21.0-51.0); MEAN CORPUSCULAR HEMOGLOBIN 29.4 pg (27.0-33.0); MEAN CORPUSCULAR HGB CONC 31.4 g/dL (32.0-36.0); MEAN CORPUSCULAR VOLUME 93.6 fL (79-99); MONOCYTES % (AUTO) 6.3 % (3.0-13.0); NEUTROPHILS % (AUTO) 85.1 % (40.0-77.0); PLATELET COUNT (AUTO) 385 K/uL (130-400); RED BLOOD CELL COUNT(AUTO) 3.44 MIL/uL (4.50-6.20)
[2020-06-25 05:18] LABS: ALBUMIN 1.7 g/dL (3.5-5.0); BILIRUBIN,TOTAL 0.4 mg/dL (0.2-1.0); CREATININE 2.7 mg/dL (0.5-1.5); PHOSPHORUS 4.4 mg/dL (2.5-4.9); POTASSIUM 5.6 mmol/L (3.5-5.1); TOTAL PROTEIN, SERUM 6.2 g/dL (6.0-8.3)
[2020-06-25] MEDS: HEPARIN SODIUM 5000UNIT/ML 1ML VIAL SQ SCH ×3 (08:16→21:23)
[2020-06-25] MEDS: FAMOTIDINE/PF 20 MG/2 ML VIAL IV SCH (08:18)
[2020-06-25] MEDS ORDERED: SODIUM POLYSTYRENE SULFONATE 15 GM/60 ML ML NG SCH (08:30)
[2020-06-25] MEDS ORDERED: CALCIUM GLUCONATE 1 GM/10 ML VIAL IV SCH (09:00)
[2020-06-25] MEDS: CALCIUM GLUCONATE 1 GM in SODIUM CHLORIDE 0.9% 100 ML IV SCH ×3 (09:00→21:00)
[2020-06-25] MEDS ORDERED: CALCIUM GLUCONATE 1 GM/10 ML VIAL IV ONE (09:08)
[2020-06-25] MEDS ORDERED: DEXTROSE 50%-WATER 50 ML DISP.SYRIN IV ONE (09:10)
[2020-06-25] MEDS: ZOSYN 3.375GM+NS 50ML 50 ML IV SCH ×2 (09:14→21:22)
[2020-06-25] MEDS: SODIUM BICARB 8.4% 50ML SYRING 150 MEQ in DEXTROSE 5%-WATER 1,000 ML IVP SCH ×2 (10:40→21:34)
[2020-06-25] MEDS: VANCOMYCIN 1.25 GM in SODIUM CHLORIDE 0.9% 250 ML IV SCH (10:40)
[2020-06-25] MEDS: INSULIN HUMULIN R 100 UNIT/ML 3ML IV SCH ×2 (11:30→16:55)
--- NOTE | 2020-06-25 16:56 | NUR ---
PT HAS BEEN NPO AND UNABLE TO GIVE INSULIN ORDERED. WILL ADVISE PHYSICIAN FOR POSSIBLE SLIDING SCALE.
--- NOTE | 2020-06-25 19:00 | NUR ---
Received report patient CT head is canceled
--- NOTE | 2020-06-25 22:40 | NUR ---
called and followed up for CT head result and informed that it was canceled,no new order [id number].
[2020-06-26] VITALS (24 sets, daily range): BP systolic 85–196; BP diastolic 45–84
[2020-06-26 03:40] LABS: BASOPHILS % (AUTO) 0.4 % (0.0-5.0); EOSINOPHILS % (AUTO) 0.1 % (0.0-8.0); HEMATOCRIT 29.9 % (42-54); MEAN CORPUSCULAR HEMOGLOBIN 28.8 pg (27.0-33.0); MEAN CORPUSCULAR HGB CONC 30.1 g/dL (32.0-36.0); MEAN CORPUSCULAR VOLUME 95.5 fL (79-99); MONOCYTES % (AUTO) 6.6 % (3.0-13.0); NEUTROPHILS % (AUTO) 75.9 % (40.0-77.0); PLATELET COUNT (AUTO) 292 K/uL (130-400); RED BLOOD CELL COUNT(AUTO) 3.13 MIL/uL (4.50-6.20); WHITE BLOOD COUNT (AUTO) 16.3 K/uL (4.8-10.8)
[2020-06-26 03:55] LABS: ALBUMIN 1.4 g/dL (3.5-5.0); BILIRUBIN,TOTAL 0.3 mg/dL (0.2-1.0); CREATININE 2.4 mg/dL (0.5-1.5); MAGNESIUM 1.5 mg/dL (1.80-2.40); PHOSPHORUS 3.7 mg/dL (2.5-4.9); POTASSIUM 4.3 mmol/L (3.5-5.1); TOTAL PROTEIN, SERUM 5.3 g/dL (6.0-8.3)
[2020-06-26] MEDS ORDERED: CALCIUM GLUCONATE 1 GM/10 ML VIAL IV ONE (05:51)
[2020-06-26] MEDS ORDERED: SODIUM CHLORIDE 0.9% 100 ML IV ONE (05:52)
[2020-06-26] MEDS: CALCIUM GLUCONATE 1 GM in SODIUM CHLORIDE 0.9% 100 ML IV SCH ×3 (05:55→20:57)
[2020-06-26] MEDS: INSULIN HUMULIN R 100 UNIT/ML 3ML IV SCH ×3 (06:51→17:00)
[2020-06-26] MEDS: HEPARIN SODIUM 5000UNIT/ML 1ML VIAL SQ SCH ×3 (08:41→20:36)
[2020-06-26] MEDS: ZOSYN 3.375GM+NS 50ML 50 ML IV SCH ×2 (08:51→20:35)
[2020-06-26] MEDS: FAMOTIDINE/PF 20 MG/2 ML VIAL IV SCH (08:51)
[2020-06-26] MEDS: SODIUM BICARB 8.4% 50ML SYRING 150 MEQ in DEXTROSE 5%-WATER 1,000 ML IVP SCH ×2 (08:53→20:35)
--- NOTE | 2020-06-26 09:53 | NUR ---
VENT # [id number] Addendum: 06/26/20 at 0954 by RENO COX Amended: Links added.
--- NOTE | 2020-06-26 12:43 | NUR ---
DC PLAN VISITED WITH PATIENT AND NURSE. RECEIVED ORDER FOR HOSPICE/PALLATIVE. EXPLAINED TO NURSE THAT PRIMARY DOCTOR HAS TO TALK TO FAMILY FIRST. NEEDS TO EXPLAIN CONDITION OF PATIENT AND WHY THEY FEEL THAT IT IS A GOOD CHOICE FOR PATIENT. IF FAMILY AGREES THEN HIRED HAND CONTINUES WITH PLAN. Addendum: 06/26/20 at 1244 by DAVID BURTON RN CM Amended: Links added.
[2020-06-26] MEDS: PHENYTOIN 100 MG/4 ML UDCUP PO SCH ×2 (14:35→20:35)
[2020-06-26] MEDS ORDERED: MAGNESIUM 2GM PREMIX 50ML 50 ML IV SCH (15:45)
[2020-06-26] MEDS: PANTOPRAZOLE 40 MG/VIAL IVP SCH (20:35)
[2020-06-26] MEDS: INSULIN HUMULIN R 100 UNIT/ML 3ML SQ SCH (23:37)
[2020-06-27] VITALS (23 sets, daily range): BP systolic 75–163; BP diastolic 47–79
[2020-06-27] MEDS ORDERED: GLUCAGON 1MG KIT 1 MG ML IM PRN
[2020-06-27] MEDS ORDERED: DEXTROSE 50%-WATER 50 ML DISP.SYRIN IV PRN
[2020-06-27] MEDS: PROPOFOL 1000 MG/100 ML 100 ML IV PRN (00:06)
[2020-06-27 03:33] LABS: HEMATOCRIT 36.9 % (42-54); MEAN CORPUSCULAR HEMOGLOBIN 29.3 pg (27.0-33.0); MEAN CORPUSCULAR VOLUME 91.6 fL (79-99); PLATELET COUNT (AUTO) 307 K/uL (130-400); RED BLOOD CELL COUNT(AUTO) 4.03 MIL/uL (4.50-6.20); RED CELL DISTRIBUTION WIDTH 14.6 % (11.0-15.5)
[2020-06-27 03:41] LABS: ALBUMIN 1.5 g/dL (3.5-5.0); BILIRUBIN,TOTAL 0.6 mg/dL (0.2-1.0); MAGNESIUM 2.1 mg/dL (1.80-2.40); POTASSIUM 3.5 mmol/L (3.5-5.1); TOTAL PROTEIN, SERUM 5.9 g/dL (6.0-8.3)
[2020-06-27 04:05] LABS: BAND NEUTROPHILS % (MANUAL) 3 % (0-2); EOSINOPHILS % (MANUAL) 13 % (1-6); LYMPHOCYTES % (MANUAL) 4 % (22-44); MAN.DIFF COMMENT-IMPRESSION MANUAL DIFFERENTIAL; MONOCYTES % (MANUAL) 1 % (2-9); PLATELET MORPHOLOGY COMMENT ADEQUATE; REACTIVE LYMPHOCYTES 1 % (0-0); SEGMENTED NEUTROPHILS % 78 % (40-70)
[2020-06-27] MEDS: INSULIN HUMULIN R 100 UNIT/ML 3ML SQ SCH ×3 (05:27→18:09)
[2020-06-27] MEDS: FAMOTIDINE/PF 20 MG/2 ML VIAL IV SCH (09:00)
[2020-06-27] MEDS: VANCOMYCIN 1.25 GM in SODIUM CHLORIDE 0.9% 250 ML IV SCH (09:25)
[2020-06-27] MEDS: CALCIUM GLUCONATE 1 GM in SODIUM CHLORIDE 0.9% 100 ML IV SCH ×2 (09:25→21:02)
[2020-06-27] MEDS: PANTOPRAZOLE 40 MG/VIAL IVP SCH ×2 (09:27→21:03)
[2020-06-27] MEDS: PHENYTOIN 100 MG/4 ML UDCUP PO SCH ×3 (09:27→21:03)
--- NOTE | 2020-06-27 09:30 | NUR ---
SS Trigger to speak with family hospice; Dr. Gates has already spoken to daughter. Telephone call to pt's daughter Mitul Kim Taiwo/[phone]; dtrMynor Frazier answered and requested this worker's phone number, stating her mother just fell asleep after being up all night. SW's contact info provided and will await call back from pt's dtr. Mitul Kim. CM made aware.
[2020-06-27] MEDS: ZOSYN 3.375GM+NS 50ML 50 ML IV SCH ×2 (09:39→21:01)
[2020-06-27] MEDS: HEPARIN SODIUM 5000UNIT/ML 1ML VIAL SQ SCH ×3 (09:41→21:04)
[2020-06-27] MEDS: SODIUM BICARB 8.4% 50ML SYRING 150 MEQ in DEXTROSE 5%-WATER 1,000 ML IVP SCH ×2 (09:42→19:38)
[2020-06-27] MEDS ORDERED: SODIUM CHLORIDE 0.9% 100 ML IV ONE (10:05)
--- NOTE | 2020-06-27 13:08 | NUR ---
Call back from pt's dtr. Mitul Maravilla, spoke with her about hospice care/[facility]. Pt's daughter wept; SW provided empathetic listening. Pt's daughter stated that she will speak with siblings before decision made and will contact this worker after having done so. CM made aware.
--- NOTE | 2020-06-27 15:15 | NUR ---
Call back from pt's dtr. reported she and siblings had discussion and they have elected hospice/[facility]. Dtr. provided telephone consent to this worker and CM witnessed. Dtr. informed this worker would make referral and due to time of day, she most likely would not be contacted by [facility] until tomorrow; dtr. voiced an understanding. 1600-Referral made to [facility]; primary nurse Mitul Georges made aware.
--- NOTE | 2020-06-27 19:00 | NUR ---
RECEIVED BEDSIDE REPORT PT REMAINED VENTED AND INTUBATED FOR HOSPICE CARE ,WILL BE EVALUATED TOMORROW PER REPORT.ROLLER LEVELER OPERATOR ALREADY SIGNED OFF THE CASE.
[2020-06-28] VITALS (27 sets, daily range): BP systolic 90–158; BP diastolic 39–85
[2020-06-28] MEDS: PROPOFOL 1000 MG/100 ML 100 ML IV PRN ×2 (02:46→11:06)
[2020-06-28 05:08] LABS: BASOPHILS % (AUTO) 0.3 % (0.0-5.0); EOSINOPHILS % (AUTO) 0.1 % (0.0-8.0); HEMATOCRIT 37.5 % (42-54); LYMPHOCYTES % (AUTO) 16.6 % (21.0-51.0); MEAN CORPUSCULAR HEMOGLOBIN 29.1 pg (27.0-33.0); MEAN CORPUSCULAR VOLUME 90.8 fL (79-99); MONOCYTES % (AUTO) 9.3 % (3.0-13.0); NEUTROPHILS % (AUTO) 72.4 % (40.0-77.0); PLATELET COUNT (AUTO) 321 K/uL (130-400); RED BLOOD CELL COUNT(AUTO) 4.13 MIL/uL (4.50-6.20); RED CELL DISTRIBUTION WIDTH 15.1 % (11.0-15.5); WHITE BLOOD COUNT (AUTO) 17.8 K/uL (4.8-10.8)
[2020-06-28 05:34] LABS: POTASSIUM 3.5 mmol/L (3.5-5.1)
[2020-06-28] MEDS: INSULIN HUMULIN R 100 UNIT/ML 3ML SQ SCH ×3 (06:20→11:18)
[2020-06-28] MEDS: SODIUM BICARB 8.4% 50ML SYRING 150 MEQ in DEXTROSE 5%-WATER 1,000 ML IVP SCH (07:15)
[2020-06-28] MEDS: CALCIUM GLUCONATE 1 GM in SODIUM CHLORIDE 0.9% 100 ML IV SCH (07:31)
[2020-06-28] MEDS: PANTOPRAZOLE 40 MG/VIAL IVP SCH (08:32)
[2020-06-28] MEDS: ZOSYN 3.375GM+NS 50ML 50 ML IV SCH (08:32)
[2020-06-28] MEDS: FAMOTIDINE/PF 20 MG/2 ML VIAL IV SCH (08:32)
[2020-06-28] MEDS: PHENYTOIN 100 MG/4 ML UDCUP PO SCH ×2 (08:35→13:02)
[2020-06-28] MEDS: HEPARIN SODIUM 5000UNIT/ML 1ML VIAL SQ SCH ×2 (08:36→13:11)
--- NOTE | 2020-06-28 08:45 | NUR ---
Recd. call from [facility]; unable to accept pt. unless he is extubated. ADELAIDA contacted pt's dtr. Mitul Kim and informed of [facility] status. Dtr. voiced that she will contact [facility] to inquire about availability for services as she does not wish for her father to be part of a "backlog" from homes; otherwise she does not have an issue with extubating. Dtr. will discuss with her mother, then contact this worker later this afternoon with findings. ADELAIDA informed primary nurse, [facility], and CM.
[2020-06-28] MEDS ORDERED: POTASSIUM CHLORIDE 10% ELIXIR 20 MEQ/15 ML UDCUP NG SCH (13:45)
--- NOTE | 2020-06-28 15:17 | NUR ---
Dr Gates made aware about patient's daughter and patient's calling to request to have withdrawal of care to be done. MD called patient's daughter to verify request. MD to enter orders for withdrawal of care and medications for comfort measures.
[2020-06-28] MEDS ORDERED: MORPHINE SULFATE 20MG/ML ORAL 0.25 ML PO PRN ×3 (15:30)
[2020-06-28] MEDS ORDERED: HALOPERIDOL 1 MG TABLET PO PRN (15:30)
[2020-06-28] MEDS ORDERED: MORPHINE SULFATE 2 MG/ML 1ML SYG IVP PRN (15:30)
[2020-06-28] MEDS ORDERED: LORAZEPAM 1 MG TABLET PO PRN (15:30)
[2020-06-28] MEDS ORDERED: SCOPOLAMINE HYDROBROMIDE 1 EACH ADH..PATCH TD SCH (15:30)
[2020-06-28] MEDS ORDERED: ARTIFICAL TEARS SOL 15 ML OU PRN (15:30)
[2020-06-28] MEDS ORDERED: ONDANSETRON 4 MG TABLET PO PRN (15:30)
[2020-06-28] MEDS ORDERED: COMPOUND NARC IV MISC 1 EACH IVSOLN MISC PRN (16:15)
--- NOTE | 2020-06-28 16:20 | NUR ---
Call back from pt's dtr. stating they have elected to extubate/withdraw pt. and have already notified primary nurse. Family has elected [facility]. SW provided empathetic listening to pt's dtr. Dtr. also expressed her gratitude for assistance provided her by primary nurse/Sarah. ADELAIDA contacted [facility] to provide update; [facility] to follow up in the morning for status. CM made aware.
--- NOTE | 2020-06-28 16:40 | NUR ---
Extubated at this time, per Carline Emery, RT, to remain on comfort measures, as per patient's family's request
[2020-06-28] MEDS: LORAZEPAM 2 MG/ML 1 ML VIAL IVP PRN (17:12)
--- NOTE | 2020-06-28 17:12 | NUR ---
Seizure like activity noted, administered 2 Mg of Ativan at this time
--- NOTE | 2020-06-28 17:40 | NUR ---
No further seizure activity noted, remains DNR, with comfort measures only, O2 sat at 96%
[2020-06-29 07:36] VITALS: BP 110/50
--- NOTE | 2020-06-29 08:00 | NUR ---
ADELAIDA contacted [facility] for f/u; per [facility] she will contact pt's dtr and have nurse follow up.
== END 2020-06-29 12:54 | DRG 870 ==
LOC: EDH 20:18 → MERGE 21:37 → EDHIP 21:37 → 2CH 06-23 14:49 → DAHIP 06-25 15:43
PROVIDERS: ADMIT Internal Medicine; ATTEND Internal Medicine
PROC: 30233N1 Transfusion of Nonautologous Red Blood Cells into Peripheral Vein, Percutaneous Approach (ICD-10-PCS; 2020-06-22)
PROC: 5A12012 Performance of Cardiac Output, Single, Manual (ICD-10-PCS; 2020-06-22)
PROC: 5A1955Z Respiratory Ventilation, Greater than 96 Consecutive Hours (ICD-10-PCS; principal; 2020-06-23)
PROC: 0BH17EZ Insertion of Endotracheal Airway into Trachea, Via Natural or Artificial Opening (ICD-10-PCS; 2020-06-23)
DX: A41.9 Sepsis, unspecified organism (principal); R65.21 Severe sepsis with septic shock; R57.0 Cardiogenic shock; J96.90 Respiratory failure, unspecified, unspecified whether with hypoxia or hypercapnia; N39.0 Urinary tract infection, site not specified; N17.9 Acute kidney failure, unspecified; D62 Acute posthemorrhagic anemia; K92.2 Gastrointestinal hemorrhage, unspecified; G93.1 Anoxic brain damage, not elsewhere classified; E87.2 Acidosis; Z51.5 Encounter for palliative care; Z66 Do not resuscitate; Z20.828 Contact with and (suspected) exposure to other viral communicable diseases; E11.9 Type 2 diabetes mellitus without complications; E87.5 Hyperkalemia; B96.20 Unspecified Escherichia coli [E. coli] as the cause of diseases classified elsewhere; E78.5 Hyperlipidemia, unspecified; I11.0 Hypertensive heart disease with heart failure; I50.9 Heart failure, unspecified; R94.31 Abnormal electrocardiogram [ECG] [EKG]; Z86.74 Personal history of sudden cardiac arrest
CPT/HCPCS: 36415; 36600; 70450; 71045; 80048; 80053; 80202; 81001; 82271; 82330; 82435; 82550; 82803; 82947; 82948; 83605; 83615; 83735; 83874; 83880; 84100; 84132; 84145; 84295; 84484; 85018; 85025; 85610; 85651; 85730; 86140; 86850; 86900; 86901; 86922; 87040; 87077; 87088; 87186; 87426; 92950; 93005; 94002; 94003; 99291; C9113; G0378; J0282; J0583; J0610; J1644; J1815; J2060; J2354; J2543; J2704; J3010; J3370; J3490; J7040; J7050; J7060; J7070; P9016; Q9967; U0003

== ENCOUNTER 2020-06-29 12:55 | Inpatient (IN) | payer OTHER ==
[2020-06-29] MEDS ORDERED: ACETAMINOPHEN 120 MG SUPPOSITORY RC PRN (14:30)
[2020-06-29] MEDS ORDERED: ONDANSETRON HCL 4 MG/2 ML VIAL IVP PRN (14:30)
[2020-06-29] MEDS ORDERED: MORPHINE SULFATE 2 MG/ML 1ML SYG IVP PRN (14:30)
[2020-06-29] MEDS ORDERED: BISACODYL 10 MG SUPP.RECT RC PRN (14:30)
[2020-06-29] MEDS: MORPHINE SULFATE 2 MG/ML 1ML SYG IVP PRN (15:58)
[2020-06-29] MEDS ORDERED: GLYCOPYRROLATE 1 MG/5 ML SYRINGE IV SCH (16:00)
[2020-06-29 17:04] VITALS: BP 107/67
--- NOTE | 2020-06-29 17:14 | NUR ---
Report given to Yvan HELLER all questions answered pt under [facility]. Plan of care regarding hospice reviewed including orders and medications.
[2020-06-29 19:30] VITALS: BP 86/68
[2020-06-30 07:31] VITALS: BP 93/52
[2020-06-30] MEDS: GLYCOPYRROLATE 1 MG/5 ML SYRINGE IV PRN (09:18)
[2020-06-30] MEDS: MORPHINE SULFATE 2 MG/ML 1ML SYG IVP PRN (10:29)
--- NOTE | 2020-06-30 10:34 | NUR ---
PINA ELAINE FROM [facility] ASSESSED PATIENT. REPORT ROBINUL 0.2MG HAD ALREADY BEEN GIVEN. MORPHINE 1MG TO BE ADMINISTERED AT THIS TIME DUE TO RAPID RESPIRATIONS.
[2020-06-30] MEDS: LORAZEPAM 2 MG/ML 1 ML VIAL IVP PRN ×2 (11:57→18:29)
[2020-06-30 19:40] VITALS: BP 80/42
[2020-07-01] MEDS: GLYCOPYRROLATE 1 MG/5 ML SYRINGE IV PRN ×2 (02:05→08:27)
--- NOTE | 2020-07-01 02:38 | NUR ---
STATUS UPDATE ORAL SXN AND ORAL CARE DONE, SMALL AMOUNT WHITE SECRETIONS OBTAINED ,TOLERATED WELL, REPOSITIONED FOR COMFORT Addendum: 07/01/20 at 0239 by JING ADAMS RN RN Amended: Links added.
[2020-07-01 08:00] VITALS: BP 66/29
[2020-07-01] MEDS: LORAZEPAM 2 MG/ML 1 ML VIAL IVP PRN (08:09)
--- NOTE | 2020-07-01 08:40 | NUR ---
Was notified by primary nurse Jannet of pt with no respirations. Assessment done, no signs of life. No respirations, no apical, carotid or radial pulse via palpation or doppler. Samir pupils dilated and fixed. supervisor net making notified, primary nurse to notify attendingTOSA.
--- NOTE | 2020-07-01 08:40 | NUR ---
PRONOUNCEMENT CALLED TO ROOM BY CN, PT IS DNR AND IS ON HOSPICE. PT IS UNRESPONSIVE, NO HEART TONES, NO RESPIRATIONS, PT PRONOUNCED AT THIS TIME.
--- NOTE | 2020-07-01 08:48 | NUR ---
NOTIFIED PINA PACK FROM [facility] REGARDING PATIENT AT 0840.
--- NOTE | 2020-07-01 09:00 | NUR ---
NOTIFIED DR. NICOLAS OF PATIENT'S PASSING. NO NEW ORDERS AT THIS TIME.
--- NOTE | 2020-07-01 09:00 | NUR ---
SPOKE TO [facility] REGARDING TIME OF .
--- NOTE | 2020-07-01 09:15 | NUR ---
Spoke with daughter Sara Maravilla to notify of pt expiring. Motorcycle Service Technician has approved 2 visitors before removal of body. Post mortem care will be done.
--- NOTE | 2020-07-01 14:00 | NUR ---
JOSE FROM [facility] TRANSPORTED PATIENT'S BODY TO [facility].
== END 2020-07-01 08:40 | disposition expired | DRG 872 ==
LOC: UNDOADMIN 12:55 → DAHIP 12:55 → MERGE 12:55 → 3AH 16:56
PROVIDERS: ADMIT Internal Medicine Hematology & Oncology; ATTEND Internal Medicine Hematology & Oncology
DX: A41.9 Sepsis, unspecified organism (principal); N17.9 Acute kidney failure, unspecified; K92.2 Gastrointestinal hemorrhage, unspecified; G93.1 Anoxic brain damage, not elsewhere classified; I10 Essential (primary) hypertension; E11.9 Type 2 diabetes mellitus without complications; Z51.5 Encounter for palliative care; Z66 Do not resuscitate
CPT/HCPCS: G0378; J2060; J3490